=== PATIENT | female | born 1990 | race Caucasian/White ===

== ENCOUNTER 2018-09-04 11:20 | Inpatient (IN) ==
[2018-09-04] MEDS ORDERED: Naloxone Inj 0.4 MG/ML Vial IV.PUSH PRN ×2 (11:38→20:40)
[2018-09-04] MEDS ORDERED: Sodium Chlor 0.9% Inj 500 ML IV.SIG PRN (11:38)
[2018-09-04] MEDS ORDERED: fentaNYL Citrate Inj 100 MCG/2 ML Ampul IV.PUSH PRN ×2 (11:38)
[2018-09-04] MEDS ORDERED: Oxytocin 30 Units/500ml Premix 30 UNITS/500 ML BAG IV.SIG PRN (11:39)
[2018-09-04] MEDS ORDERED: Citric Acid/Sodium Citrate Liq 30 ML UDC PO SCH (11:45)
[2018-09-04] MEDS ORDERED: Sod Chloride 0.9% Inj 1,000 ML IV.CONT PRN (12:30)
[2018-09-04] MEDS ORDERED: Oxytocin 30 Units/500ml Premix 30 UNITS/500 ML BAG IV.SIG ONE (13:00)
[2018-09-04 13:49] LABS: Baso % (Auto) 0.3 % (0.0-2.0); Eos # (Auto) 0.1 th/mm3 (0.0-0.4); Hematocrit 33.4 % (35.0-46.0); Hemoglobin 10.8 gm/dL (11.6-15.3); Lymph # (Auto) 2.3 th/mm3 (1.0-4.8); Lymph % (Auto) 15.2 % (9.0-44.0); Mean Corpuscular HGB Conc 32.4 % (32.0-36.0); Mean Corpuscular Hemoglobin 25.9 pg (27.0-34.0); Mean Platelet Volume 9.2 fL (7.0-11.0); Mono # (Auto) 0.9 th/mm3 (0.0-0.9); Mono % (Auto) 5.8 % (0.0-8.0); Neut % (Auto) 77.7 % (16.0-70.0); Platelet Count 207 th/mm3 (150-450); Red Blood Count 4.17 mil/mm3 (4.00-5.30); Red Cell Distribution Width 14.6 % (11.6-17.2); White Blood Count 15.4 th/mm3 (4.0-11.0)
[2018-09-04 14:33] LABS: Bacteria,Urine Rare /hpf; Bilirubin,Urine Negative (Negative); Clarity,Urine Clear (Clear); Color,Urine Yellow (Yellw/Straw); Glucose,Urine (UA) Negative (Negative); Leukocyte Esterase,Urine Negative (Negative); Mucus,Urine Few /lpf (Occasional); Nitrite,Urine Negative (Negative); Specific Gravity,Urine 1.012 (1.002-1.035); Squamous Epithelial Cell,Urine <1 /hpf (0-5)
[2018-09-04 14:54] LABS: Eosinophils 2 % (0-4); Lymphocytes 18 % (9-44); Monocytes 5 % (0-8); Platelet Estimate Normal (Normal); Platelet Morphology Normal (Normal)
[2018-09-04] MEDS ORDERED: Diphtheria/Tetanus/Pertussis Vaccine Inj 0.5 ML Syringe IM ONE (16:00)
[2018-09-04] MEDS ORDERED: fentaNYL 2MCG-Bupiv 0.125% Epi 150 ML EPIDURAL ONE (17:19)
[2018-09-04] MEDS ORDERED: fentaNYL Citrate Inj 100 MCG/2 ML Ampul EPIDURAL ONE (19:13)
[2018-09-04] MEDS ORDERED: fentaNYL 2MCG-Bupiv 0.125% Epi 150 ML EPIDURAL PRN (19:13)
[2018-09-04] MEDS ORDERED: Lidocaine 1% Inj 50 ML Vial ONE (19:14)
[2018-09-04] MEDS ORDERED: Benzocaine 20% Top Spray 60 ML Can TOPICAL PRN (20:40)
[2018-09-04] MEDS ORDERED: Witch Hazel 50%/Glyderin 12.5% 40 Pad Jar RECTAL PRN (20:40)
[2018-09-04] MEDS ORDERED: Zolpidem Tartrate 5 MG Tablet PO PRN (20:40)
[2018-09-04] MEDS ORDERED: Bisacodyl 10 MG Supp RECTAL PRN (20:40)
[2018-09-04] MEDS ORDERED: Oxytocin 30 Units/500ml Premix 30 UNITS/500 ML BAG IV.CONT PRN (20:40)
--- NOTE | 2018-09-04 20:49 | P.OBDELI ---
Weeks Gestation: 40 Patient Started Active Labor: Yes Active Labor Start Date: 09/04/18 Active Labor Start Time: 11:00 Medical Induction of Labor: No Artificial Rupture of Membrane: Yes Artificial ROM Date: 09/04/18 Artificial ROM Time: 13:10 Anesthesia: Epidural Vaginal Delivery: Normal, Spontaneous Presentation: Occiput anterior Nuchal Cord: None Delayed Cord Clamping (45 sec): Yes Placenta: Spontaneous delivery, Intact, 3 vessel cord Laceration: Vaginal, 2 deg Repair: Chromic running : Female, Single
--- NOTE | 2018-09-04 20:58 | P.HPOB ---
History of Present Illness Service: obstetrics Primary Care Physician: No Primary Care Physician Chief Complaint: induction History of Present Illness: 28 yo WF 40 weeks here for induction. cervix 2-3 cm. She has previous uncomplicated delivery Weeks Gestation:: 40 Para: 1 : 2 - Inpatient Certification I certify that the inpatient services were ordered in accordance with Medicare regulations governing the order. This includes certification that hospital inpatient services are reasonable and necessary and in the case of services not specified as inpatient-only under 42 CFR 419.22(n), that they are appropriately provided as inpatient services in accordance to with the 2-midnight benchmark under 43 CFR 412.3(e) Estimated Total Length of Stay (Days): 2 Plans for Post Hospital Care: Home Review of Systems All other systems reviewed negative except as stated in HPI PMFSH - History History Provided By: Patient - Medical / Surgical Hx Neg / Unobtainable Medical Problems Denied: Yes Surgical History: No Previous Surgery - Social History I have reviewed the patient's Social History: Yes - Tobacco History Second Hand Smoke Exposure: No Tobacco Use In Past 30 Days: No Smoking Status: Never smoker - Travel History Recent Travel in the [place] Within the Last 8 Weeks: No Recent Travel Out of the Country Within the Last 8 Weeks: No Medications and Allergies Active Medications: Active Medications Acetaminophen (Tylenol) 650 mg PO Q4H PRN PRN Reason: PAIN SCALE 1 TO 2 Al Hydroxide/Mg Hydroxide (Milk Of [place] Liq) 30 ml PO Q12H PRN PRN Reason: Mild Constipation Benzocaine (Americaine 20% Top [place]) 1 spray TOPICAL Q4H PRN PRN Reason: For Perineum Discomfort Bisacodyl (Dulcolax Supp) 10 mg RECTAL DAILY PRN PRN Reason: SEVERE CONSITIPATION Diphtheria/Pertussis/Tetanus Vacc (Boostrix Vaccine Inj) 0.5 ml IM .ONCE ONE Stop: 09/04/18 16:01 Ephedrine Sulfate (Ephedrine/Ns Syringe) 10 mg IV.PUSH UNSCH PRN PRN Reason: SEE LABEL COMMENTS Stop: 09/05/18 19:13 Oxytocin (Pitocin 30 Units/Ns 500 Ml Premix) 30 units in 500 mls @ 2 mls/hr IV.SIG TITRATE PRN; Protocol PRN Reason: For induction of labor Last Admin: 09/04/18 12:41 Dose: 2 milliunit/min, 2 mls/hr Fentanyl/Bupivacaine/Sodium Chlor (Fentanyl 2 Mcg-Bupiv 0.125% Epi) 150 mls @ 10 mls/hr EPIDURAL PRN PRN PRN Reason: for Labor Pain Oxytocin (Pitocin 30 Units/Ns 500 Ml Premix) 30 units in 500 mls @ 100 mls/hr IV.CONT UNSCH PRN PRN Reason: Heavy bleeding Ibuprofen (Motrin) 800 mg PO Q8H PRN PRN Reason: For Cramping Lactulose (Lactulose Liq) 30 ml PO DAILY PRN PRN Reason: SEVERE CONSITIPATION Measles/Mumps/Rubella Vaccine Live (M-M-R Ii Vaccine Inj) 0.5 ml SQ .ONCE ONE Stop: 09/04/18 16:01 Miscellaneous Information (Misc Information) 1 each OTHER UNSCH PRN PRN Reason: SEE LABEL COMMENTS Stop: 09/05/18 19:13 Miscellaneous Information (Misc Information) 1 each OTHER UNSCH PRN PRN Reason: SEE LABEL COMMENTS Stop: 09/05/18 19:13 Naloxone HCl (Narcan Inj) 0.1 mg IV.PUSH Q2M PRN PRN Reason: for opiate reversal Ondansetron HCl (Zofran Odt) 4 mg PO Q6H PRN PRN Reason: NAUSEA OR VOMITING Oxycodone/Acetaminophen (Percocet 5/325 Mg) 2 tab PO Q4H PRN PRN Reason: PAIN SCALE 6 TO 10 Oxycodone/Acetaminophen (Percocet 5/325 Mg) 1 tab PO Q4H PRN PRN Reason: PAIN SCALE 3 TO 5 Senna/Docusate Sodium (Molly-Colace) 1 tab PO BID [facility] Sennosides (Senokot) 17.2 mg PO Q12H PRN PRN Reason: Moderate Constipation Sodium Chloride (Ns Flush) 2 ml IV.FLUSH BID [facility] Sodium Chloride (Ns Flush) 2 ml IV.FLUSH PRN PRN PRN Reason: FLUSH AFTER USING IV ACCESS Witch Colleen/Glycerin (Tucks Pads) 1 applicatio RECTAL QID PRN PRN Reason: HEMORRHOIDS Zolpidem Tartrate (Ambien) 5 mg PO HS PRN PRN Reason: SLEEP Allergies Allergy/AdvReac Type Severity Reaction Status Date / Time No Known Allergies Allergy Verified 09/04/18 12:24 Home Medications Medication Instructions Recorded Confirmed Type ranitidine HCl [Zantac] 300 mg PO DAILY 09/04/18 09/04/18 History Exam Vital signs: Vital Signs 09/04/18 11:46 09/04/18 12:41 09/04/18 13:18 Temperature 98.1 F Pulse Rate 118 H 103 H 98 H Respiratory Rate 18 Blood Pressure 122/80 116/75 123/76 09/04/18 13:45 09/04/18 13:46 09/04/18 14:19 Temperature 98.2 F Pulse Rate 99 H 98 H Respiratory Rate 18 Blood Pressure 116/73 121/72 09/04/18 14:47 09/04/18 14:48 09/04/18 15:05 Temperature Pulse Rate 92 H 94 H Respiratory Rate 18 Blood Pressure 119/71 09/04/18 15:15 09/04/18 15:20 09/04/18 15:25 Temperature Pulse Rate 98 H 100 H 96 H Respiratory Rate Blood Pressure 123/46 L 09/04/18 15:40 09/04/18 15:53 09/04/18 16:24 Temperature 97.7 F Pulse Rate 96 H 95 H 93 H Respiratory Rate 18 Blood Pressure 124/71 128/78 09/04/18 16:30 09/04/18 17:14 09/04/18 17:15 Temperature Pulse Rate 89 Respiratory Rate 18 18 Blood Pressure 115/67 09/04/18 17:41 09/04/18 17:56 09/04/18 18:00 Temperature Pulse Rate 88 101 H 97 H Respiratory Rate Blood Pressure 116/74 94/66 L 117/65 09/04/18 18:10 09/04/18 18:12 09/04/18 18:45 Temperature Pulse Rate 110 H 96 H 108 H Respiratory Rate 18 Blood Pressure 127/41 L 99/45 L 09/04/18 18:50 09/04/18 18:55 09/04/18 19:01 Temperature Pulse Rate 114 H 115 H 125 H Respiratory Rate Blood Pressure 114/101 H 09/04/18 19:06 09/04/18 19:10 09/04/18 19:22 Temperature Pulse Rate 119 H 117 H Respiratory Rate 18 Blood Pressure 112/69 113/83 09/04/18 19:40 09/04/18 19:45 09/04/18 19:55 Temperature 97.4 F L Pulse Rate 120 H 124 H Respiratory Rate Blood Pressure 120/64 101/70 09/04/18 20:01 09/04/18 20:13 09/04/18 20:15 Temperature Pulse Rate 129 H 125 H Respiratory Rate 18 Blood Pressure 97/67 L 127/75 09/04/18 20:31 09/04/18 20:35 09/04/18 20:45 Temperature Pulse Rate 121 H 120 H Respiratory Rate 18 Blood Pressure 124/40 L 123/64 Intake & Output 09/04/18 09/04/18 09/05/18 06:59 18:59 06:59 Intake Total 1000 / 1000 Balance 1000 / 1000 Weight 90.358 kg Intake: IV 1000 / 1000 LR 1000 mL Inj 1,000 ML @ 125 1000 / 1000 mls/hr IV.CONT .Q8H [facility] Rx[id number] Other: Weight On Admission 89.811 kg - Constitutional no acute distress - Routine HEENT Exam Head: Present: normocephalic - Routine Neck Exam Present: full ROM - Routine Chest/Breast/Axilla Exam Chest wall: Present: tenderness - Routine Respiratory Exam Present: CTA bilaterally - Routine Cardiovascular Exam Present: RRR - Routine Abdominal Exam Present: soft, normoactive bowel sounds - Routine Exam Patient deferred: external exam External: Present: normal urethra appearance Perineum Description: Intact Comments: 2-3 cm - Routine Extremities Exam Present: edema, full ROM - Routine Skin Exam Present: intact - Routine Neurological Exam Present: oriented X3 Results - Labs CBC & Chem 7: 09/04/18 11:50 Labs: Laboratory Results - last 24 hr 09/04/18 09/04/18 09/04/18 11:50 11:50 11:50 WBC 15.4 H RBC 4.17 Hgb 10.8 L Hct 33.4 L MCV 80.0 MCH 25.9 L MCHC 32.4 RDW 14.6 Plt Count 207 MPV 9.2 Prelim Diff (Auto) Slide review pending Neut % (Auto) 77.7 H Lymph % (Auto) 15.2 [place] % (Auto) 5.8 Eos % (Auto) 1.0 Baso % (Auto) 0.3 Neut # (Auto) 12.0 H Lymph # (Auto) 2.3 [place] # (Auto) 0.9 Eos # (Auto) 0.1 Baso # (Auto) 0.0 WBC Differential Manual diff final Seg Neuts % (Manual) 72 H Band Neuts % (Manual) 3 Lymphocytes % (Manual) 18 Monocytes % (Manual) 5 Eosinophils % (Manual) 2 Abs Neuts (Manual) 11.6 H Differential Comment . Platelet Estimate Normal Platelet Morphology Normal Urine Color Urine Clarity Urine pH Ur Specific [place] Urine Protein Urine Glucose (UA) Urine Ketones Urine Occult Blood Urine Nitrate Urine Bilirubin Urine Urobilinogen Ur Leukocyte Esterase Urine RBC Urine WBC Ur Squamous Epith Cells Urine Bacteria Urine Mucus Micro UA Comment Ur Microscopic Review Urine Culture Comments Urine Opiates Screen Cancelled POC Urine Opiates POC Urine Buprenorphine POC Urine Oxycodone POC Urine Methadone Ur Barbiturates Screen Cancelled POC Urine Barbiturates POC Urine PCP Ur Amphetamine Screen Cancelled POC Ur Amphetamines POC Ur Methamphetamine POC Urine MDMA U Benzodiazepines Scrn Cancelled POC Ur Benzodiazepine Urine Cocaine Screen Cancelled POC Urine Cocaine U Cannabinoids Screen Cancelled POC Ur Marijuana (THC) Blood Type A Positive 09/04/18 09/04/18 11:50 11:50 WBC RBC Hgb Hct MCV MCH MCHC RDW Plt Count MPV Prelim Diff (Auto) Neut % (Auto) Lymph % (Auto) [place] % (Auto) Eos % (Auto) Baso % (Auto) Neut # (Auto) Lymph # (Auto) [place] # (Auto) Eos # (Auto) Baso # (Auto) WBC Differential Seg Neuts % (Manual) Band Neuts % (Manual) Lymphocytes % (Manual) Monocytes % (Manual) Eosinophils % (Manual) Abs Neuts (Manual) Differential Comment Platelet Estimate Platelet Morphology Urine Color Yellow Urine Clarity Clear Urine pH 6.0 Ur Specific [place] 1.012 Urine Protein Negative Urine Glucose (UA) Negative Urine Ketones Negative Urine Occult Blood Negative Urine Nitrate Negative Urine Bilirubin Negative Urine Urobilinogen Less than 2 Ur Leukocyte Esterase Negative Urine RBC Less than 1 Urine WBC Less than 1 Ur Squamous Epith Cells <1 Urine Bacteria Rare H Urine Mucus Few H Micro UA Comment Culture not ind Ur Microscopic Review Not Reportable Urine Culture Comments Culture not ind Urine Opiates Screen POC Urine Opiates Negative POC Urine Buprenorphine Negative POC Urine Oxycodone Negative POC Urine Methadone Negative Ur Barbiturates Screen POC Urine Barbiturates Negative POC Urine PCP Negative Ur Amphetamine Screen POC Ur Amphetamines Negative POC Ur Methamphetamine Positive POC Urine MDMA Negative U Benzodiazepines Scrn POC Ur Benzodiazepine Negative Urine Cocaine Screen POC Urine Cocaine Negative U Cannabinoids Screen POC Ur Marijuana (THC) Negative Blood Type Group B Strep: Negative Caprini VTE Risk Assessment Caprini VTE Risk Assessment: No/Low Risk (score <= 1) Caprini Risk Assessment Model: Point Value = 1 Point Value = 2 Point Value = 3 Point Value = 5 Age 41-60 Minor surgery BMI > 25 kg/m2 Swollen legs Varicose veins or History of unexplained or recurrent spontaneous Oral contraceptives or hormone replacement Sepsis (< 1 month) Serious lung disease, including pneumonia (< 1 month) Abnormal pulmonary function Acute myocardial infarction Congestive heart failure (< 1 month) History of inflammatory bowel disease Medical patient at bed rest Age 61-74 Arthroscopic surgery Major open surgery (> 45 min) Laparoscopic surgery (> 45 min) Malignancy Confined to bed (> 72 hours) Immobilizing plaster cast Central venous access Age >= 75 History of VTE Family history of VTE Factor V Leiden Prothrombin [id number] Lupus anticoagulant Anticardiolipin antibodies Elevated serum homocysteine Heparin-induced thrombocytopenia Other congenital or acquired thrombophilia Stroke (< 1 month) Elective arthroplasty Hip, pelvis, or leg fracture Acute spinal cord injury (< 1 month) Prophylaxis Regimen: Total Risk Factor Score Risk Level Prophylaxis Regimen 0-1 Low Early ambulation 2 Moderate Order ONE of the following: *Sequential Compression Device (SCD) *Heparin 5000 units SQ BID 3-4 Higher Order ONE of the following medications: *Heparin 5000 units SQ TID *Enoxaparin/Lovenox 40 mg SQ daily (WT < 150 kg, CrCl > 30 mL/min) *Enoxaparin/Lovenox 30 mg SQ daily (WT < 150 kg, CrCl > 10-29 mL/min) *Enoxaparin/Lovenox 30 mg SQ BID (WT < 150 kg, CrCl > 30 mL/min) AND/OR *Sequential Compression Device (SCD) 5 or more Highest Order ONE of the following medications: *Heparin 5000 units SQ TID (Preferred with Epidurals) *Enoxaparin/Lovenox 40 mg SQ daily (WT < 150 kg, CrCl > 30 mL/min) *Enoxaparin/Lovenox 30 mg SQ daily (WT < 150 kg, CrCl > 10-29 mL/min) *Enoxaparin/Lovenox 30 mg SQ BID (WT < 150 kg, CrCl > 30 mL/min) AND *Sequential Compression Device (SCD) Assessment and Plan - Diagnosis (1) (spontaneous vaginal delivery) Code(s): O80 - Encounter for full-term uncomplicated delivery Status: Acute - Plan doing well
[2018-09-04] MEDS: Senna/Docusate Sodium 8.6/50 MG Tablet PO SCH (23:16)
[2018-09-05] MEDS: Acetaminophen 325 MG Tablet PO PRN ×2 (06:15→13:34)
[2018-09-05] MEDS: Senna/Docusate Sodium 8.6/50 MG Tablet PO SCH (08:12)
[2018-09-05 08:46] VITALS: RESP 18
--- NOTE | 2018-09-05 09:10 | P.PNOB ---
Subjective Post day: 1 Interval history: doing well pp dc home Objective Vital Signs/I&O: Vital Signs 09/04/18 11:46 09/04/18 12:41 09/04/18 13:18 Temperature 98.1 F Pulse Rate 118 H 103 H 98 H Respiratory Rate 18 Blood Pressure 122/80 116/75 123/76 09/04/18 13:45 09/04/18 13:46 09/04/18 14:19 Temperature 98.2 F Pulse Rate 99 H 98 H Respiratory Rate 18 Blood Pressure 116/73 121/72 09/04/18 14:47 09/04/18 14:48 09/04/18 15:05 Temperature Pulse Rate 92 H 94 H Respiratory Rate 18 Blood Pressure 119/71 09/04/18 15:15 09/04/18 15:20 09/04/18 15:25 Temperature Pulse Rate 98 H 100 H 96 H Respiratory Rate Blood Pressure 123/46 L 09/04/18 15:40 09/04/18 15:53 09/04/18 16:24 Temperature 97.7 F Pulse Rate 96 H 95 H 93 H Respiratory Rate 18 Blood Pressure 124/71 128/78 09/04/18 16:30 09/04/18 17:14 09/04/18 17:15 Temperature Pulse Rate 89 Respiratory Rate 18 18 Blood Pressure 115/67 09/04/18 17:41 09/04/18 17:56 09/04/18 18:00 Temperature Pulse Rate 88 101 H 97 H Respiratory Rate Blood Pressure 116/74 94/66 L 117/65 09/04/18 18:10 09/04/18 18:12 09/04/18 18:45 Temperature Pulse Rate 110 H 96 H 108 H Respiratory Rate 18 Blood Pressure 127/41 L 99/45 L 09/04/18 18:50 09/04/18 18:55 09/04/18 19:01 Temperature Pulse Rate 114 H 115 H 125 H Respiratory Rate Blood Pressure 114/101 H 09/04/18 19:06 09/04/18 19:10 09/04/18 19:22 Temperature Pulse Rate 119 H 117 H Respiratory Rate 18 Blood Pressure 112/69 113/83 09/04/18 19:40 09/04/18 19:45 09/04/18 19:55 Temperature 97.4 F L Pulse Rate 120 H 124 H Respiratory Rate Blood Pressure 120/64 101/70 09/04/18 20:01 09/04/18 20:13 09/04/18 20:15 Temperature Pulse Rate 129 H 125 H Respiratory Rate 18 Blood Pressure 97/67 L 127/75 09/04/18 20:31 09/04/18 20:35 09/04/18 20:45 Temperature Pulse Rate 121 H 120 H Respiratory Rate 18 Blood Pressure 124/40 L 123/64 09/04/18 20:50 09/04/18 21:00 09/04/18 21:05 Temperature Pulse Rate 117 H Respiratory Rate 18 18 Blood Pressure 112/65 09/04/18 21:15 09/04/18 21:20 09/04/18 21:50 Temperature Pulse Rate 120 H Respiratory Rate 18 18 Blood Pressure 105/88 09/04/18 21:57 09/04/18 22:05 09/04/18 22:31 Temperature Pulse Rate 105 H 111 H 103 H Respiratory Rate 18 Blood Pressure 106/60 95/58 L 101/58 L 09/04/18 22:49 09/04/18 23:05 09/04/18 23:30 Temperature Pulse Rate 108 H Respiratory Rate 18 18 18 Blood Pressure 123/69 09/04/18 23:50 09/05/18 08:00 Temperature 98.2 F 98.8 F Pulse Rate 103 H 68 Respiratory Rate 20 18 Blood Pressure 110/68 104/62 Intake & Output 09/04/18 09/05/18 09/05/18 18:59 06:59 18:59 Intake Total 1000 / 1000 Balance 1000 / 1000 Weight 90.358 kg Intake: IV 1000 / 1000 LR 1000 mL Inj 1,000 ML @ 125 1000 / 1000 mls/hr IV.CONT .Q8H [facility] Rx#: [id number] Other: Weight On Admission 89.811 kg Result Diagrams: 09/04/18 11:50 Objective Remarks: GENERAL: Well-nourished, well-developed patient. CARDIOVASCULAR: Regular rate and rhythm without murmurs, gallops, or rubs. RESPIRATORY: Breath sounds equal bilaterally. No accessory muscle use. ABDOMEN/GI: Abdomen soft, non-tender. Fundus: Firm, non-tender at umbilicus. GENITOURINARY: Light to moderate bleeding. EXTREMITIES: No cyanosis or edema, non-tender, without signs of DVT. Medications and IVs: Active Medications Acetaminophen (Tylenol) 650 mg PO Q4H PRN PRN Reason: PAIN SCALE 1 TO 2 Last Admin: 09/05/18 06:15 Dose: 650 mg Al Hydroxide/Mg Hydroxide (Milk Of [place] Liq) 30 ml PO Q12H PRN PRN Reason: Mild Constipation Benzocaine (Americaine 20% Top [place]) 1 spray TOPICAL Q4H PRN PRN Reason: For Perineum Discomfort Last Admin: 09/05/18 00:03 Dose: 1 spray Bisacodyl (Dulcolax Supp) 10 mg RECTAL DAILY PRN PRN Reason: SEVERE CONSITIPATION Diphtheria/Pertussis/Tetanus Vacc (Boostrix Vaccine Inj) 0.5 ml IM .ONCE ONE Stop: 09/05/18 16:01 Ephedrine Sulfate (Ephedrine/Ns Syringe) 10 mg IV.PUSH UNSCH PRN PRN Reason: SEE LABEL COMMENTS Stop: 09/05/18 19:13 Oxytocin (Pitocin 30 Units/Ns 500 Ml Premix) 30 units in 500 mls @ 2 mls/hr IV.SIG TITRATE PRN; Protocol PRN Reason: For induction of labor Last Admin: 09/04/18 12:41 Dose: 2 milliunit/min, 2 mls/hr Fentanyl/Bupivacaine/Sodium Chlor (Fentanyl 2 Mcg-Bupiv 0.125% Epi) 150 mls @ 10 mls/hr EPIDURAL PRN PRN PRN Reason: for Labor Pain Oxytocin (Pitocin 30 Units/Ns 500 Ml Premix) 30 units in 500 mls @ 100 mls/hr IV.CONT UNSCH PRN PRN Reason: Heavy bleeding Last Admin: 09/04/18 22:00 Dose: 100 mls/hr Ibuprofen (Motrin) 800 mg PO Q8H PRN PRN Reason: For Cramping Last Admin: 09/05/18 03:13 Dose: 800 mg Lactulose (Lactulose Liq) 30 ml PO DAILY PRN PRN Reason: SEVERE CONSITIPATION Measles/Mumps/Rubella Vaccine Live (M-M-R Ii Vaccine Inj) 0.5 ml SQ .ONCE ONE Stop: 09/05/18 16:01 Miscellaneous Information (Misc Information) 1 each OTHER UNSCH PRN PRN Reason: SEE LABEL COMMENTS Stop: 09/05/18 19:13 Miscellaneous Information (Misc Information) 1 each OTHER UNSCH PRN PRN Reason: SEE LABEL COMMENTS Stop: 09/05/18 19:13 Naloxone HCl (Narcan Inj) 0.1 mg IV.PUSH Q2M PRN PRN Reason: for opiate reversal Ondansetron HCl (Zofran Odt) 4 mg PO Q6H PRN PRN Reason: NAUSEA OR VOMITING Oxycodone/Acetaminophen (Percocet 5/325 Mg) 2 tab PO Q4H PRN PRN Reason: PAIN SCALE 6 TO 10 Oxycodone/Acetaminophen (Percocet 5/325 Mg) 1 tab PO Q4H PRN PRN Reason: PAIN SCALE 3 TO 5 Senna/Docusate Sodium (Molly-Colace) 1 tab PO BID [facility] Last Admin: 09/05/18 08:12 Dose: 1 tab Sennosides (Senokot) 17.2 mg PO Q12H PRN PRN Reason: Moderate Constipation Sodium Chloride (Ns Flush) 2 ml IV.FLUSH BID [facility] Last Admin: 09/05/18 08:13 Dose: 2 ml Sodium Chloride (Ns Flush) 2 ml IV.FLUSH PRN PRN PRN Reason: FLUSH AFTER USING IV ACCESS Witch Colleen/Glycerin (Tucks Pads) 1 applicatio RECTAL QID PRN PRN Reason: HEMORRHOIDS Last Admin: 09/05/18 00:03 Dose: 1 applicatio Zolpidem Tartrate (Ambien) 5 mg PO HS PRN PRN Reason: SLEEP Assessment and Plan - Diagnosis (1) (spontaneous vaginal delivery) Code(s): O80 - Encounter for full-term uncomplicated delivery Status: Acute - Plan doing well
--- NOTE | 2018-09-05 09:12 | P.DS ---
Date of admission: 09/04/18 11:20 Primary care physician: No Primary Care Physician Brief History from admission: 28 yo WF 40 weeks here for induction. cervix 2-3 cm. She has previous uncomplicated delivery DS: Diagnosis - Discharge Diagnosis (1) (spontaneous vaginal delivery) Status: Acute DS: Summary Hospital Course: induction at 40 weeks and and DC home ppd#1 - Time Spent with Patient Total time spent providing and/or coordinating discharge services: Less than 30 minutes Exam Vital signs: Vital Signs 09/04/18 11:46 09/04/18 12:41 09/04/18 13:18 Temperature 98.1 F Pulse Rate 118 H 103 H 98 H Respiratory Rate 18 Blood Pressure 122/80 116/75 123/76 09/04/18 13:45 09/04/18 13:46 09/04/18 14:19 Temperature 98.2 F Pulse Rate 99 H 98 H Respiratory Rate 18 Blood Pressure 116/73 121/72 09/04/18 14:47 09/04/18 14:48 09/04/18 15:05 Temperature Pulse Rate 92 H 94 H Respiratory Rate 18 Blood Pressure 119/71 09/04/18 15:15 09/04/18 15:20 09/04/18 15:25 Temperature Pulse Rate 98 H 100 H 96 H Respiratory Rate Blood Pressure 123/46 L 09/04/18 15:40 09/04/18 15:53 09/04/18 16:24 Temperature 97.7 F Pulse Rate 96 H 95 H 93 H Respiratory Rate 18 Blood Pressure 124/71 128/78 09/04/18 16:30 09/04/18 17:14 09/04/18 17:15 Temperature Pulse Rate 89 Respiratory Rate 18 18 Blood Pressure 115/67 09/04/18 17:41 09/04/18 17:56 09/04/18 18:00 Temperature Pulse Rate 88 101 H 97 H Respiratory Rate Blood Pressure 116/74 94/66 L 117/65 09/04/18 18:10 09/04/18 18:12 09/04/18 18:45 Temperature Pulse Rate 110 H 96 H 108 H Respiratory Rate 18 Blood Pressure 127/41 L 99/45 L 09/04/18 18:50 09/04/18 18:55 09/04/18 19:01 Temperature Pulse Rate 114 H 115 H 125 H Respiratory Rate Blood Pressure 114/101 H 09/04/18 19:06 09/04/18 19:10 09/04/18 19:22 Temperature Pulse Rate 119 H 117 H Respiratory Rate 18 Blood Pressure 112/69 113/83 09/04/18 19:40 09/04/18 19:45 09/04/18 19:55 Temperature 97.4 F L Pulse Rate 120 H 124 H Respiratory Rate Blood Pressure 120/64 101/70 09/04/18 20:01 09/04/18 20:13 09/04/18 20:15 Temperature Pulse Rate 129 H 125 H Respiratory Rate 18 Blood Pressure 97/67 L 127/75 09/04/18 20:31 09/04/18 20:35 09/04/18 20:45 Temperature Pulse Rate 121 H 120 H Respiratory Rate 18 Blood Pressure 124/40 L 123/64 09/04/18 20:50 09/04/18 21:00 09/04/18 21:05 Temperature Pulse Rate 117 H Respiratory Rate 18 18 Blood Pressure 112/65 09/04/18 21:15 09/04/18 21:20 09/04/18 21:50 Temperature Pulse Rate 120 H Respiratory Rate 18 18 Blood Pressure 105/88 09/04/18 21:57 09/04/18 22:05 09/04/18 22:31 Temperature Pulse Rate 105 H 111 H 103 H Respiratory Rate 18 Blood Pressure 106/60 95/58 L 101/58 L 09/04/18 22:49 09/04/18 23:05 09/04/18 23:30 Temperature Pulse Rate 108 H Respiratory Rate 18 18 18 Blood Pressure 123/69 09/04/18 23:50 09/05/18 08:00 Temperature 98.2 F 98.8 F Pulse Rate 103 H 68 Respiratory Rate 20 18 Blood Pressure 110/68 104/62 Intake & Output 09/04/18 09/05/18 09/05/18 18:59 06:59 18:59 Intake Total 1000 / 1000 Balance 1000 / 1000 Weight 90.358 kg Intake: IV 1000 / 1000 LR 1000 mL Inj 1,000 ML @ 125 1000 / 1000 mls/hr IV.CONT .Q8H [facility] Rx#: [id number] Other: Weight On Admission 89.811 kg - Constitutional no acute distress Results Procedures completed during hospitalization: Labs on day of discharge: Labs from last 24 hours 09/04/18 09/04/18 09/04/18 11:50 11:50 11:50 WBC RBC Hgb Hct MCV MCH MCHC RDW Plt Count MPV Prelim Diff (Auto) Neut % (Auto) Lymph % (Auto) [place] % (Auto) Eos % (Auto) Baso % (Auto) Neut # (Auto) Lymph # (Auto) [place] # (Auto) Eos # (Auto) Baso # (Auto) WBC Differential Seg Neuts % (Manual) Band Neuts % (Manual) Lymphocytes % (Manual) Monocytes % (Manual) Eosinophils % (Manual) Abs Neuts (Manual) Differential Comment Platelet Estimate Platelet Morphology Urine Color Yellow Urine Clarity Clear Urine pH 6.0 Ur Specific Stella 1.012 Urine Protein Negative Urine Glucose (UA) Negative Urine Ketones Negative Urine Occult Blood Negative Urine Nitrate Negative Urine Bilirubin Negative Urine Urobilinogen Less than 2 Ur Leukocyte Esterase Negative Urine RBC Less than 1 Urine WBC Less than 1 Ur Squamous Epith Cells <1 Urine Bacteria Rare H Urine Mucus Few H Micro UA Comment Culture not ind Ur Microscopic Review Not Reportable Urine Culture Comments Culture not ind Urine Opiates Screen POC Urine Opiates Negative POC Urine Buprenorphine Negative Ur Heroin Screen Pending POC Urine Oxycodone Negative POC Urine Methadone Negative U Hydromorphone Confirm Pending Urine Fentanyl Pending Ur Barbiturates Screen POC Urine Barbiturates Negative Urine Gabapentin Pending POC Urine PCP Negative Ur Amphetamine Screen POC Ur Amphetamines Negative POC Ur Methamphetamine Positive POC Urine MDMA Negative U Benzodiazepines Scrn POC Ur Benzodiazepine Negative Urine Cocaine Screen POC Urine Cocaine Negative U Cannabinoids Screen POC Ur Marijuana (THC) Negative Blood Type 09/04/18 09/04/18 09/04/18 11:50 11:50 11:50 WBC 15.4 H RBC 4.17 Hgb 10.8 L Hct 33.4 L MCV 80.0 MCH 25.9 L MCHC 32.4 RDW 14.6 Plt Count 207 MPV 9.2 Prelim Diff (Auto) Slide review pending Neut % (Auto) 77.7 H Lymph % (Auto) 15.2 [place] % (Auto) 5.8 Eos % (Auto) 1.0 Baso % (Auto) 0.3 Neut # (Auto) 12.0 H Lymph # (Auto) 2.3 [place] # (Auto) 0.9 Eos # (Auto) 0.1 Baso # (Auto) 0.0 WBC Differential Manual diff final Seg Neuts % (Manual) 72 H Band Neuts % (Manual) 3 Lymphocytes % (Manual) 18 Monocytes % (Manual) 5 Eosinophils % (Manual) 2 Abs Neuts (Manual) 11.6 H Differential Comment . Platelet Estimate Normal Platelet Morphology Normal Urine Color Urine Clarity Urine pH Ur Specific Stella Urine Protein Urine Glucose (UA) Urine Ketones Urine Occult Blood Urine Nitrate Urine Bilirubin Urine Urobilinogen Ur Leukocyte Esterase Urine RBC Urine WBC Ur Squamous Epith Cells Urine Bacteria Urine Mucus Micro UA Comment Ur Microscopic Review Urine Culture Comments Urine Opiates Screen Cancelled POC Urine Opiates POC Urine Buprenorphine Ur Heroin Screen POC Urine Oxycodone POC Urine Methadone U Hydromorphone Confirm Urine Fentanyl Ur Barbiturates Screen Cancelled POC Urine Barbiturates Urine Gabapentin POC Urine PCP Ur Amphetamine Screen Cancelled POC Ur Amphetamines POC Ur Methamphetamine POC Urine MDMA U Benzodiazepines Scrn Cancelled POC Ur Benzodiazepine Urine Cocaine Screen Cancelled POC Urine Cocaine U Cannabinoids Screen Cancelled POC Ur Marijuana (THC) Blood Type A Positive Discharge Plan - Discharge Disposition Patient Disposition: 01 Discharge Home - Discharge Condition Condition: Good - Discharge Order Discharge Orders: Discharge Order (Routine); Ordered 09/05/18 Ordered By: Salomón Harry - Physicians Team Primary Care Provider: Primary Care Sapphire Rodrigues Attending Provider: Salomón Harry - Rxs /Orders / Referrals /Forms Prescriptions: Continue ranitidine HCl [Zantac] 150 mg Tablet 300 mg PO DAILY Referrals: Salomón Harry MD [Physician] - See Instructions Primary Care Sapphire Rodrigues [Primary Care Provider] - See Instructions - Post Discharge Care Plan Care Plan Goals: Discharge Plan of Care After Vaginal Delivery Congratulations on your new baby! We want your recovery to be muse and trouble free. After having a baby, your body may be very tired. It can take time to recover from a vaginal delivery. You may stay in the hospital or center from 1 to 4 days. In some cases, you may be able to go home the same day. Changing Expectations for Parents: Most new mothers experience some form of the baby blues. These mood swings are caused by hormonal shifts in your body. Stress due to the recent changes in your life and lack of sleep also have an effect. The baby blues may last a few days or up to 2 weeks. Balancing the Blues: Recognize your need to talk, to feel protected, to have private time. Allow yourself to cry, to sit, to think. Ask for help when you need it, and accept help when its offered. Knowing your needs is not a weakness. Share your thoughts with your partner. Or pickle processor the phone and call a friend, your mother , a sister, or an aunt. Rest, eat right, and get some light exercise. The mind feels best when the body feels good. Diet and Activity: * Eat fresh fruit and vegetables, whole grains, and bran cereals. * Drink plenty of water. * Dont strain to have a bowel movement. * Follow activity as directed. * After you deliver your baby, you can start to exercise when you feel ready. Let your body be your guide. If you are : * Ask before you take any medicine. * If you leak milk, it will help to nurse right before the activity. * Talk to your healthcare provider about alcohol, if you choose to drink. * When youre sick, check with your physician if the medications would impact the breast feeding * Ask your physician before taking any prescription or [id number] medicines, herbs, or supplements. * Ask your physician what to use for prevention while you are nursing. If you have Stitches: * Gently wipe from front to back after you urinate or have a bowel movement.. * After wiping, spray warm water on the area. Or you can have a sitz bath. This means sitting in a tub with a few inches of water in it. * Pat the area dry or use a hairdryer on a cool setting. * Do not use soap or any solution except water on the area. * You can take a shower unless told not to. * Change sanitary pads at least every 2 to 4 hours.. * Place cold or heat packs on the area as directed by your physician or nurses. Keep a thin towel between the pack and your skin. When to call your doctor: Call your doctor right away if you have: Fever of 100.5F (38C) or higher, or as directed by your doctor. Heavy or gushing bleeding from the vagina. Discharge that has a bad odor. No bowel movement within one week after the of your baby. Pain or urgency with urination, or inability to urinate. Severe pain in the belly or increased pain near your stitches. Signs of Depression include: You dont want to be with the baby. Your symptoms are not getting better, and youre getting more upset. You have no interest in eating or are not able to sleep. You think you may harm yourself or the baby. The Depression After Delivery hotline (461-808-2176) may also be helpful. If your symptoms worsen call your OB Physician, or go to an Urgent Care Center or Emergency Room Smoking is Dangerous to your health. Avoid second hand smoke Call the 24-hour crisis hotline for domestic abuse at Follow-Up: Do Not miss your follow-up appointment. Increasing symptoms of depression. Keep up with all your appointments and yearly check ups. Call 911: Call 911 right away if you have: Chest pain. Shortness of breath. Any pain or tenderness in your calf. Severe depression or Thoughts of harm to self and others.
[2018-09-05] MEDS ORDERED: Measles/Mumps/Rubella Vaccine Inj 0.5 ML Vial SQ ONE (16:00)
[2018-09-05] MEDS ORDERED: Diphtheria/Tetanus/Pertussis Vaccine Inj 0.5 ML Syringe IM ONE (16:00)
[2018-09-05 21:19] VITALS: BP 128/79; PULSE 67; TEMP 98.3
== END 2018-09-05 22:30 | disposition home or self-care (01) ==
LOC: H2E 11:20 → H1EA 23:39
PROVIDERS: ADMIT Obstetrics & Gynecology; ATTEND Obstetrics & Gynecology